=== PATIENT | male | born 1985 | race Caucasian/White ===

== ENCOUNTER 2016-10-03 19:50 | Emergency (ER) | payer OTHER ==
[~2016-10-03] VITALS: Ht 170.2 cm; Wt 90.4 kg
[2016-10-03 19:55] VITALS: TEMP 37.4; Ht 170.2 cm; Wt 90.4 kg
[2016-10-03] MEDS ORDERED: SODIUM CHLORIDE 0.9% 1000ML 1,000 ML IV STA ×2 (19:57)
[2016-10-03 20:21] LABS: BASO % 0.2 %; BASO ABS # 0.03 K/uL (0-0.2); COMPLETE YES; EOS % 0.7 %; HEMATOCRIT 42.2 % (42-52); IG% 0.3 %; LYMPH % 17.4 %; MEAN CELL VOLUME 90.8 fL (80-100); MEAN CORPUSCULAR HEMOGLOBIN 31.4 pg (25-34); MEAN CORPUSCULAR HGB CONC 34.6 g/dl (32-36); MEAN PLATELET VOLUME 8.3 fL (7.4-10.4); MONO % 11.8 %; NEUT % 69.6 %; PLATELET COUNT 275 K/uL (130-400); RED BLOOD COUNT 4.65 M/uL (4.7-6.1); WHITE BLOOD COUNT 15.55 K/uL (4.8-10.8)
[2016-10-03 20:38] LABS: ALT/SGPT 63 U/L (12-78); BLOOD UREA NITROGEN 19 mg/dl (7-18); BUN/CREATININE RATIO 15.4 (10-20); CALCIUM 8.7 mg/dl (8.5-10.1); CARBON DIOXIDE 25 mmol/L (21-32); CHLORIDE 107 mmol/L (98-107); GLUCOSE 108 mg/dl (70-99); POTASSIUM 3.8 mmol/L (3.5-5.1); SODIUM 138 mmol/L (136-145)
[2016-10-03 20:41] LABS: ALKALINE PHOSPHATASE 103 U/L (45-117); AST/SGOT 37 U/L (15-37)
[2016-10-03] MEDS ORDERED: ACET-1256 PO (20:53)
[2016-10-03] MEDS ORDERED: AMOX875T PO (20:53)
[2016-10-03] MEDS ORDERED: TRAM-10 PO (20:53)
[2016-10-03] MEDS ORDERED: OPTIRAY 320 IV PRN (21:30)
[2016-10-03 22:47] LABS: URINE APPEARANCE CLEAR (CLEAR); URINE COLOR DK YELLOW; URINE NITRITE NEG (NEG); UROBILINOGEN POS (NEG); ZZUR CULT IF INDIC CLEAN CATCH NO
[2016-10-03 23:28] LABS: MANUAL MICROSCOPIC REQUIRED? NO; REVIEW REQ? YES; URINE BILIRUBIN NEG (NEG)
--- NOTE | 2016-10-04 00:36 | EMERGENCY ROOM VISIT NOTE ---
History Report prepared by Gilmeribharsha: Pari Burden Under the Supervision of: Dr. Aubrey Delacruz M.D. First contact with patient: 19:56 Chief Complaint: ABDOMINAL PAIN Stated Complaint: ABD PAIN, FEVER, AND MORE Nursing Triage Summary: Pt reports RLQ pain, nausea, constipation, "high fever in excess of 102". Sx for a for a couple days. Tylenol taken 1 hr [employer]. History of Present Illness The patient is a 30 year old male who presents to the Emergency Room with complaints of worsening RLQ abdominal pain for the past couple of days. He rates his pain as an 8/10 and reports it radiates around to his back. He has also experienced a fever, nausea and constipation. The fever occasionally spikes to over 102 degrees but Tylenol has provided good relief. The patient was seen at [facility] earlier today and was given Amoxicillin and Toradol, which have provided only minor relief. The patient denies any LOC, headache, chills, diaphoresis, visual changes, neck pain, chest pain, breathing difficulties, vomiting, back pain, melena, hematochezia, urinary symptoms, numbness, weakness, lymphadenopathy, rash, or other complaints. Source of History: patient Onset: past couple of days Position: abdomen (RLQ) Symptom Intensity: 8/10 Timing: worsening Modifying Factors (Relieving): narcotics (Toradol) Associated Symptoms: + fevers, + nausea Review of Systems See HPI for pertinent positives and negatives. A total of ten systems were reviewed and were otherwise negative. Past Medical & Surgical Medical Problems: (1) Bursitis of right knee Family History Patient reports no known family medical history. Social History Smoking Status: Current Every Day Smoker Alcohol Use: occasionally Drug Use: none Marital Status: Housing Status: lives with family Occupation Status: employed Current/Historical Medications Scheduled Amoxicillin & Pot Clavulanate (Augmentin 875-125 mg), 1 TAB PO BID Scheduled PRN Acetaminophen (Tylenol), 1,000 MG PO Q6 PRN for Pain Tramadol (Ultram), 50 MG PO Q8H PRN for Pain Allergies Coded Allergies: No Known Allergies (Unverified , 10/03/16) Physical Exam Vital Signs Date Time Temp Pulse Resp B/P (MAP) Pulse Ox O2 Delivery O2 Flow Rate FiO2 10/03/16 22:28 81 16 118/63 97 Room Air 10/03/16 19:55 37.4 99 18 120/80 97 Room Air Physical Exam GENERAL: Awake, alert, uncomfortable-appearing, in no distress HENT: Normocephalic, atraumatic. Oropharynx unremarkable. EYES: Normal conjunctiva. Sclera non-icteric. NECK: Supple. No nuchal rigidity. FROM. No JVD. RESPIRATORY: Clear to auscultation. CARDIAC: Regular rate, normal rhythm. Extremities warm and well perfused. Pulses equal. ABDOMEN: Soft, non-distended. RLQ tenderness to palpation. Positive rebound and guarding. No masses. RECTAL: Deferred. MUSCULOSKELETAL: Chest examination reveals no tenderness. The back is symmetrical on inspection without obvious abnormality. There is no CVA tenderness to palpation. No joint edema. LOWER EXTREMITIES: Calves are equal size bilaterally and non-tender. No edema. No discoloration. NEURO: Normal sensorium. No sensory or motor deficits noted. SKIN: No rash or jaundice noted. Medical Decision & Procedures ER Provider Diagnostic Interpretation: CT imaging of the abdomen and pelvis reveals a normal appendix. Enteritis suspected. Right lower quadrant lymphadenopathy noted. Laboratory Results 10/03/16 20:05 Red Blood Count 4.65, Mean Corpuscular Volume 90.8, Mean Corpuscular Hemoglobin 31.4, Mean Corpuscular Hemoglobin Concent 34.6, Mean Platelet Volume 8.3, Neutrophils (%) (Auto) 69.6, Lymphocytes (%) (Auto) 17.4, Monocytes (%) (Auto) 11.8, Eosinophils (%) (Auto) 0.7, Basophils (%) (Auto) 0.2, Neutrophils # (Auto ) 10.83, Lymphocytes # (Auto) 2.70, Monocytes # (Auto) 1.84, Eosinophils # (Auto ) 0.11, Basophils # (Auto) 0.03 10/03/16 20:05 Test 10/03/16 19:57 10/03/16 20:05 Urine Color DK YELLOW Urine Appearance CLEAR (CLEAR) Urine pH 7.0 (4.5-7.5) Urine Specific [place] 1.030 (1.000-1.030) Urine Protein TRACE (NEG) Urine Glucose (UA) NEG (NEG) Urine Ketones TRACE (NEG) Urine Occult Blood NEG (NEG) Urine Nitrite NEG (NEG) Urine Bilirubin NEG (NEG) Urine Urobilinogen POS (NEG) Urine Leukocyte Esterase NEG (NEG) Urine WBC (Auto) 1-5 /hpf (0-5) Urine RBC (Auto) 0-4 /hpf (0-4) Urine Hyaline Casts (Auto) 0 /lpf (0-5) Urine Epithelial Cells (Auto) 5-10 /lpf (0-5) Urine Bacteria (Auto) NEG (NEG) White Blood Count 15.55 K/uL (4.8-10.8) Red Blood Count 4.65 M/uL (4.7-6.1) Hemoglobin 14.6 g/dL (14.0-18.0) Hematocrit 42.2 % (42-52) Mean Corpuscular Volume 90.8 fL (80-100) Mean Corpuscular Hemoglobin 31.4 pg (25-34) Mean Corpuscular Hemoglobin Concent 34.6 g/dl (32-36) Platelet Count 275 K/uL (130-400) Mean Platelet Volume 8.3 fL (7.4-10.4) Neutrophils (%) (Auto) 69.6 % Lymphocytes (%) (Auto) 17.4 % Monocytes (%) (Auto) 11.8 % Eosinophils (%) (Auto) 0.7 % Basophils (%) (Auto) 0.2 % Neutrophils # (Auto) 10.83 K/uL (1.4-6.5) Lymphocytes # (Auto) 2.70 K/uL (1.2-3.4) Monocytes # (Auto) 1.84 K/uL (0.11-0.59) Eosinophils # (Auto) 0.11 K/uL (0-0.5) Basophils # (Auto) 0.03 K/uL (0-0.2) RDW Standard Deviation 41.7 fL (36.4-46.3) RDW Coefficient of Variation 12.6 % (11.5-14.5) Immature Granulocyte % (Auto) 0.3 % Immature Granulocyte # (Auto) 0.04 K/uL (0.00-0.02) Anion Gap 6.0 mmol/L (3-11) Est Creatinine Clear Calc Drug Dose 96.5 ml/min Estimated GFR () 93.5 Estimated GFR (Non- 80.7 BUN/Creatinine Ratio 15.4 (10-20) Calcium Level 8.7 mg/dl (8.5-10.1) Total Bilirubin 0.4 mg/dl (0.2-1) Direct Bilirubin < 0.1 mg/dl (0-0.2) Aspartate Amino Transf (AST/SGOT) 37 U/L (15-37) Alanine Aminotransferase (ALT/SGPT) 63 U/L (12-78) Alkaline Phosphatase 103 U/L (45-117) Total Protein 7.4 gm/dl (6.4-8.2) Albumin 3.5 gm/dl (3.4-5.0) Lipase 83 U/L (73-393) Laboratory results reviewed by me Medications Administered Medications (Trade) Dose Ordered Sig/Keyur Route Start Time Stop Time Status Last Admin Dose Admin Sodium Chloride 1,000 ml @ 125 mls/hr Q8H STAT IV 10/03/16 19:57 10/04/16 03:56 10/03/16 19:57 125 MLS/HR Sodium Chloride 1,000 ml @ 999 mls/hr Q1H1M STAT IV 10/03/16 19:57 10/03/16 20:57 DC 10/03/16 20:22 999 MLS/HR ED Course 2003: The patient was evaluated in room C4. A complete history and physical exam was performed. 1956: NSS 1000 ml @ 999 mls/hr IV, NSS 1000 ml @ 125 mls/hr IV. 2117: I received the medical records from [place]. The patient had a CT of the Abdomen and Pelvis without contrast. The impression read as follows. Thickened wall of the terminal ileum and consider mild/early Crohn's. Infectious enteritis would also be possible. CT or MR enterography better evaluate. Extensive scattered lymph nodes on the mesentery are nonenlarged by CT criteria. Some haziness noted to the fat in the root of the mesentery. These findings are likely chronic postinflammatory though may also relate to the process involving the terminal ileum. 2123: I reevaluated the patient and he is doing okay. 0030: Pt evaluated. He was educated. Return instructions were outlined. He was discharged in stable condition. Medical Decision Triage Nursing notes reviewed. The patient's presentation and history were concerning for abdominal pain. Etiologies such as appendicitis, diverticulitis, obstruction, inflammatory bowel disease, renal colic, PUD, biliary pathology, pancreatitis, mesenteric ischemia, aortic pathology, infections, genitourinary, UTI, perforated viscus, as well as others were entertained. The patient was evaluated. Records obtained from the [facility]. Patient declined analgesia. He was hydrated. CT imaging there revealed possible enteritis versus terminal ileum involvement with an inflammatory condition. This was done without contrast. The patient had blood work obtained here. He had a leukocytosis. His remainder of laboratory testing was unremarkable. The patient was hydrated here. He declined analgesia. The patient prepped for CT. He underwent CT imaging. This revealed an enteritis but no evidence of appendicitis. No surgical pathology noted. At this point the patient is stable and can be discharged for further outpatient workup. I gave my usual and customary discussion regarding this issue. By the evaluation outlined above other emergent etiologies such as those listed in the differential, as well as others, were deemed relatively unlikely. The patient was educated about the findings as listed above. All questions were answered and the patient was pleased with the treatment. Return instructions were outlined and the patient was discharged in stable condition. The patient was referred to his PCP for follow-up for a recheck of the current condition. Impression Primary Impression: Right lower quadrant abdominal pain Additional Impression: Enteritis Scribe Attestation The scribe's documentation has been prepared under my direction and personally reviewed by me in its entirety. I confirm that the note above accurately reflects all work, treatment, procedures, and medical decision making performed by me. Departure Information Dispostion Home / Self-Care Referrals No Doctor, Assigned (PCP) Patient Instructions My [facility] Additional Instructions ABDOMINAL PAIN INSTRUCTIONS: Ibuprofen(Motrin, Advil) may be used for fever or pain. Use 600mg every six hours as needed. Take with food. Avoid using more than 2400mg in a 24 hour period. Do not use 2400mg per day for more than three consecutive days without physician direction. Prolonged inappropriate use can lead to stomach upset or ulcers. (AND/OR) Acetaminophen(Tylenol) may be used for fever or pain. Use 1000mg every six hours as needed. Avoid using more than 4000mg in a 24 hour period. Rest and drink plenty of fluids as tolerated. Slow sips of water or sports drinks are recommended instead of large amounts all at once. Continue current medications. Return to the ER immediately for worsening or persistent abdominal pain, vomiting, fevers, chest pains, difficulty breathing, black or bloody stools, worsening of your condition, or as needed. Follow up with your primary physician in 3 days for a recheck of your current condition. Problem Qualifiers
[2016-10-04 00:57] VITALS: BP 120/76; PULSE 79; O2SAT 98
--- NOTE | 2016-10-04 06:35 | DIAGNOSTIC IMAGING REPORT ---
CT ABD/PELVIS IV AND ORAL CONT CLINICAL HISTORY: Right lower quadrant abdominal pain and fever. COMPARISON STUDY: None. TECHNIQUE: Following the IV administration of 117 mL of Optiray-320, CT scan of the abdomen and pelvis was performed from the lung bases to the proximal femurs. Images are reviewed in the axial, sagittal, and coronal planes. IV contrast was administered without complication. A dose lowering technique was utilized adhering to the principles of ALARA. CT DOSE: 461.27 mGy.cm FINDINGS: Lower chest: There are minor dependent atelectatic changes present. Liver: The contrast-enhanced liver is normal in size, contour, and attenuation. There is no intrahepatic biliary ductal dilatation. The hepatic veins and portal veins are patent. Gallbladder: Unremarkable. Spleen: Normal in size and attenuation. Pancreas: Unremarkable. Adrenal glands: Unremarkable. Kidneys: There is symmetric renal cortical enhancement. The kidneys are normal in size without hydronephrosis. Bowel: There are no transition zones indicate bowel obstruction. There is no acute diverticulitis. The appendix appears normal. There is wall thickening involving the terminal ileum, consistent with a nonspecific terminal ileitis Peritoneum: There is no intraperitoneal free air or abdominal ascites. Vasculature: The abdominal aorta is normal in course and caliber. Adenopathy: There are mildly prominent ileocolic lymph nodes, likely reactive. Pelvic viscera: The bladder, and pelvic viscera are unremarkable. Skeletal structures: No destructive osseous lesions are seen. IMPRESSION: 1. No evidence of bowel obstruction. No evidence of free air. 2. Normal appendix. No evidence of acute diverticulitis 3. Wall thickening of the terminal ileum, suggesting a nonspecific terminal ileitis. There are associated prominent ileocolic lymph nodes, likely reactive Electronically signed by: Raymond Middleton M.D. 10/04/2016 6:34 AM Dictated Date/Time: 10/04/2016 6:29 AM
== END 2016-10-04 00:59 | disposition home or self-care (01) ==
LOC: C.EDB 19:51 → C.EDC 10-04 00:59
DX: K52.9 Noninfective gastroenteritis and colitis, unspecified (principal); R10.31 Right lower quadrant pain; R50.9 Fever, unspecified; F17.210 Nicotine dependence, cigarettes, uncomplicated